=== PATIENT | male | born 1970 | race Caucasian/White ===

== ENCOUNTER 2022-07-31 22:24 | Inpatient (IN) | payer OTHER ==
[~2022-07-31] VITALS: Ht 157.5 cm; Wt 45.0 kg
[2022-07-31] MEDS: BLOOD GLUCOSE MONITORING 1 DEV DEV FS SCH (05:45)
[2022-07-31 22:24] VITALS: BP 139/88
--- NOTE | 2022-07-31 22:25 | NUR ---
PT [facility] ER BED 11
[2022-07-31] MEDS ORDERED: NACL 0.9% 2,000 ML IV ONE (22:30)
--- NOTE | 2022-07-31 22:30 | NUR ---
Patient lying in bed, A/Ox2, chest rise and fall symmetrical, no c/o pain or s/s of discomfort, on monitor, seizure/pads precautions in place.
--- NOTE | 2022-07-31 22:39 | NUR ---
LAB AT BEDSIDE.
[2022-07-31 22:51] LABS: HEMOGLOBIN 15.7 g/dL (12.0-18.0); LYMPHOCYTES # (AUTO) 1.6 K/uL (2.0-11.5); LYMPHOCYTES % (AUTO) 8.9 % (20.5-51.1); MEAN CORPUSCULAR HEMOGLOBIN 30 pg (27-31); MEAN CORPUSCULAR HGB CONC 33 g/dL (33-37); MEAN CORPUSCULAR VOLUME 92.5 fL (80-94); MONOCYTES # (AUTO) 1.4 K/uL (0.8-1.0); MONOCYTES % (AUTO) 7.8 % (1.7-9.3); NEUTROPHILS # (AUTO) 14.6 K/uL (1.8-7.7); NEUTROPHILS % (AUTO) 83.3 % (42.2-75.2); PLATELET COUNT (AUTO) 315 K/uL (140-450); RED BLOOD CELL COUNT(AUTO) 5.18 MIL/uL (4.20-6.10); RED CELL DISTRIBUTION WIDTH 12.7 % (11.6-13.7); WHITE BLOOD COUNT (AUTO) 17.5 K/uL (4.8-10.8)
[2022-07-31 23:20] LABS: ALBUMIN 3.7 g/dL (3.4-5.0); ANION GAP 37.4 (8-16); CARBON DIOXIDE 14.2 mmol/L (21-32); CREATININE 2.5 mg/dL (0.6-1.3); POTASSIUM 4.6 mmol/L (3.5-5.1); TOTAL BILIRUBIN 0.7 mg/dL (0.0-1.0)
[2022-08-01] VITALS (18 sets, daily range): BP systolic 109–148; BP diastolic 73–92
[2022-08-01] MEDS ORDERED: DEXTROSE 50% 50 ML SYR IVP PRN ×2 (00:15→02:45)
[2022-08-01] MEDS ORDERED: INSULIN REGULAR, HUMAN 100 UNIT in NACL 0.9% 100 ML IV SCH ×6 (00:15→04:15)
--- NOTE | 2022-08-01 00:15 | NUR ---
Pt complained of generalized pain classified as little pain Leland 1 TAB given effective fell asleep denies pain no sign of distress noted vitals signs stable
--- NOTE | 2022-08-01 00:28 | NUR ---
CHRISTI MORENO CALLED FOR UPDATES. WOULD LIKE A CALL BACK AT [phone]
--- NOTE | 2022-08-01 00:51 | NUR ---
Patient lying in bed, A/Ox3, chest rise and fall symmetrical, no c/o pain or s/s of discomfort, on monitor, seizure/pads precautions in place.
--- NOTE | 2022-08-01 00:51 | NUR ---
Patient lying in bed, A/Ox3, chest rise and fall symmetrical, no c/o pain or s/s of discomfort, on monitor, seizure/pads precautions in place.
[2022-08-01] MEDS: BLOOD GLUCOSE MONITORING 1 DEV DEV FS SCH ×22 (00:54→23:15)
--- NOTE | 2022-08-01 01:36 | NUR ---
Patient lying in bed, A/Ox3, chest rise and fall symmetrical, no c/o pain or s/s of discomfort, on monitor, seizure/pads precautions in place.
--- NOTE | 2022-08-01 02:15 | NUR ---
Patient lying in bed, A/Ox3, chest rise and fall symmetrical, no c/o pain or s/s of discomfort, on monitor, seizure/pads precautions in place.
--- NOTE | 2022-08-01 02:30 | NUR ---
Patient uriniated in urinal, yellow clear, 300 mL.
[2022-08-01] MEDS ORDERED: ZOLPIDEM 5 MG TAB PO PRN (02:45)
[2022-08-01] MEDS ORDERED: LORazepam 1 MG TAB PO PRN (02:45)
[2022-08-01] MEDS ORDERED: NACL 0.9% 1,000 ML IV SCH ×2 (02:45→04:15)
[2022-08-01] MEDS ORDERED: HYDROcodone/APAP 5/325 MG 1 TAB TAB PO PRN (02:45)
[2022-08-01] MEDS ORDERED: HYDROmorphone 1 MG/ML AMP IVP PRN (02:45)
[2022-08-01] MEDS ORDERED: ACETAMINOPHEN 325 MG TAB PO PRN (02:45)
[2022-08-01] MEDS ORDERED: BLOOD GLUCOSE MONITORING 1 DEV DEV FS SCH (02:45)
[2022-08-01] MEDS ORDERED: ONDANSETRON 4 MG/2 ML VIAL IVP PRN (02:45)
--- NOTE | 2022-08-01 03:00 | NUR ---
Patient will be admitted to care of Franchesca RN. Admited to ICU. Will go to room 3. Belongings list completed. Report to Franchesca RN. Franchesca RN verbalized understanding of report, no further questions.
--- NOTE | 2022-08-01 03:32 | NUR ---
ADMITTED THIS 52 YEAR OLD MALE PATIENT FROM ER PER [facility] DUE TO HIGH BLOOD SUGAR LEVEL. ASSISTED PATIENT IN ICU BED NO.3; HOOKED TO SMART GRID ENGINEER, SCOPE SHOWS ON SINUS TACHY HR 121/MIN NO ARRHYTHMIAS SEEN. PATIENT IS AWAKE AND ALERT BUT WITH BOUTS OF CONFUSION. BREATHING IS EVEN AND UNLABORED ON ROOM AIR SO2 98 TO 100%. REGULAR INSULIN DRIP IN PROGRESS VIA G 20 IV CANNULA TO RIGHT AC AND WITH ANOTHER IV CANNULA G20 ON LEFT AC.
--- NOTE | 2022-08-01 03:45 | NUR ---
BLOOD SUGAR CHECK DONE; INSULIN DRIP CONTINUED AT 0.1 UNIT/KG/HR AND STARTED ON NORMAL SALINE DRIP AT 200 ML/HR VIA LEFT AC IV CANNULA. BLOOD SUGAR CHECK EVERY HOUR PER PROTOCOL.
[2022-08-01] MEDS: DEXT 5% / NACL 0.45% 1,000 ML IV SCH ×4 (04:00→22:14)
--- NOTE | 2022-08-01 04:00 | NUR ---
[facility] SCREEN SWAB SENT TO LAB.
[2022-08-01 04:43] LABS: CARBON DIOXIDE 15.9 mmol/L (21-32)
[2022-08-01 04:46] LABS: CREATININE 2.1 mg/dL (0.6-1.3)
[2022-08-01 04:53] LABS: MAGNESIUM 2.7 mg/dL (1.8-2.4)
[2022-08-01 04:57] LABS: ANION GAP 29.1 (8-16)
--- NOTE | 2022-08-01 05:30 | NUR ---
VISITED BY TIFFANIE, PATIENT'S SON; FOUND OUT SOME DISCREPANCIES IN WHAT PATIENT IS TELLING.
--- NOTE | 2022-08-01 07:30 | NUR ---
Received report on pt. Pt drowsy, arousable, oriented x3. Pt with insulin drip 0.1 unit/kg/hr and NS 200 ml/hr. Pt states no pain, no distress noted on room air. Skin cool to touch. Pt able to void.
--- NOTE | 2022-08-01 07:30 | NUR ---
ENDORSED TO AM SHIFT NATASHA FLORES FOR CONTINUITY OF CARE.
[2022-08-01] MEDS: DOCUSATE SODIUM 100 MG GELCAP PO SCH (08:27)
[2022-08-01 08:41] LABS: ANION GAP 17.9 (8-16); CARBON DIOXIDE 23.6 mmol/L (21-32); CREATININE 1.9 mg/dL (0.6-1.3); POTASSIUM 3.5 mmol/L (3.5-5.1)
[2022-08-01 08:44] LABS: MAGNESIUM 2.6 mg/dL (1.8-2.4); PHOSPHORUS 2.1 mg/dL (2.5-4.9)
--- NOTE | 2022-08-01 09:01 | NUR ---
PATIENT HAS BEEN SCREENED AND CATEGORIZED HIGH NUTRITION RISK. PATIENT WILL BE SEEN WITHIN 1-[address] RECEIVED REFERRAL REQUEST FOR UNINTENTIONAL WEIGHT LOSS ON 08/01/22 RE[address] BY LILLIE GONZALEZ RD
--- NOTE | 2022-08-01 09:23 | NUR ---
Dr. Reyes made aware of pt's sodium level 171, states to continue pt on NS for dehydration.
[2022-08-01] MEDS ORDERED: FAMOTIDINE 20 MG/2 ML VIAL IV SCH (10:50)
--- NOTE | 2022-08-01 11:00 | NUR ---
Dr. Gaytan rounding on pt, pt's daughter at bedside and updated regarding plan of care.
[2022-08-01 12:43] LABS: ANION GAP 11.9 (8-16); CARBON DIOXIDE 22.7 mmol/L (21-32); CREATININE 1.4 mg/dL (0.6-1.3)
[2022-08-01 12:45] LABS: POTASSIUM 2.6 mmol/L (3.5-5.1)
[2022-08-01 12:46] LABS: MAGNESIUM 1.6 mg/dL (1.8-2.4)
--- NOTE | 2022-08-01 12:50 | NUR ---
Dr. Walker rounding on pt. New orders made. MD also aware of sodium levels and states to have main fluid switched to 1/2 NS.
[2022-08-01] MEDS ORDERED: KCL 20 MEQ/WATER INJ PREMIX 200 ML IV SCH (13:15)
[2022-08-01] MEDS: NACL 0.45% 1,000 ML IV SCH ×2 (13:37→19:40)
[2022-08-01] MEDS: FAMOTIDINE 20 MG/2 ML VIAL IV SCH (13:42)
[2022-08-01] MEDS ORDERED: SODIUM PHOSPHATE 30 MMOLE in NACL 0.9% 250 ML IV SCH (14:00)
--- NOTE | 2022-08-01 14:49 | NUR ---
IV left AC noted with catheter almost out, unable to fix IV and removed. Catheter tip intact, bleeding controlled. New IV site placement 20G on left FA, patent, no infiltration noted. Pt tolerated well.
[2022-08-01 15:48] LABS: ANION GAP 13.6 (8-16); CARBON DIOXIDE 26.1 mmol/L (21-32); CREATININE 1.7 mg/dL (0.6-1.3); POTASSIUM 3.7 mmol/L (3.5-5.1)
[2022-08-01 15:52] LABS: MAGNESIUM 2.3 mg/dL (1.8-2.4); PHOSPHORUS 1.4 mg/dL (2.5-4.9)
--- NOTE | 2022-08-01 16:47 | NUR ---
Attempted to update pt's son Fernando regarding pt's current status, no answer, left voicemail.
[2022-08-01] MEDS ORDERED: POTASSIUM PHOSPHATE 30 MM in NACL 0.9% 250 ML IV SCH (17:00)
--- NOTE | 2022-08-01 17:28 | NUR ---
DC PLANNING ASSESSMENT COMPLETE PLEASE REFER TO ASSESSMENT FOR DETAILS PER TIFFANIE, DC PLAN IS FOR PT TO RETURN HOME W/ SON PROVIDING TRANSPORTATION, WHEN MEDICALLY STABLE. Addendum: 08/01/22 at 1728 by Marissa GARCIA Amended: Links added.
--- NOTE | 2022-08-01 19:20 | NUR ---
Assumed pt care report received from Cristin KAUR met pt awake alert, coherent with verbal response generalized weakness ST/SR on the monitor blood pressure/ vitals signs stable denies pain no sign of distress noted. Ongoing Insulin drip on DKA protocol. Education on care plan verbalized understanding but reinforcement needed will continue to monitor and treat as per care plan.
--- NOTE | 2022-08-01 19:35 | NUR ---
Endorsed plan of care to RN.
[2022-08-01 20:26] LABS: ANION GAP 11.6 (8-16); CREATININE 1.5 mg/dL (0.6-1.3); POTASSIUM 3.6 mmol/L (3.5-5.1)
--- NOTE | 2022-08-01 20:50 | NUR ---
Pt's family visit at the bedside updates on pt's condition, education on care plan, ongoing treatments latest blood sugar vitals signs and encouraged them to verbalized their concerns. They were grateful for all care pt receiving as at this time.
[2022-08-01 21:39] LABS: ANION GAP 11.1 (8-16); CARBON DIOXIDE 26.8 mmol/L (21-32); CREATININE 1.5 mg/dL (0.6-1.3); POTASSIUM 3.9 mmol/L (3.5-5.1)
--- NOTE | 2022-08-01 22:02 | NUR ---
Notified Dr ASCENCIO latest BMP results with critical Sodium 172, CO2 26.8, BUN 38 Creatnine 1.5 latest blood sugar 183 Anion gap 11.1 ongoing Insulin drip @0.05 units/kg/hr and main IV D5 .45NS @200ML/HR. No new order received from as at this time said to continue with same tx.
[2022-08-02] VITALS (14 sets, daily range): BP systolic 106–159; BP diastolic 68–90
[2022-08-02] MEDS: BLOOD GLUCOSE MONITORING 1 DEV DEV FS SCH ×17 (00:47→21:00)
[2022-08-02 00:53] LABS: ANION GAP 12.1 (8-16); CARBON DIOXIDE 25.5 mmol/L (21-32); CREATININE 1.5 mg/dL (0.6-1.3); POTASSIUM 3.6 mmol/L (3.5-5.1)
[2022-08-02] MEDS: DEXT 5% / NACL 0.45% 1,000 ML IV SCH ×6 (00:53→23:15)
[2022-08-02 00:58] LABS: MAGNESIUM 1.9 mg/dL (1.8-2.4); PHOSPHORUS 3.1 mg/dL (2.5-4.9)
[2022-08-02] MEDS: NACL 0.45% 1,000 ML IV SCH ×4 (02:20→22:20)
[2022-08-02 06:26] LABS: CARBON DIOXIDE 23.6 mmol/L (21-32); CREATININE 1.5 mg/dL (0.6-1.3); POTASSIUM 3.6 mmol/L (3.5-5.1)
[2022-08-02 06:33] LABS: MAGNESIUM 1.9 mg/dL (1.8-2.4); PHOSPHORUS 2.3 mg/dL (2.5-4.9)
[2022-08-02 06:57] LABS: BASOPHILS # (AUTO) 0.1 K/uL (0.00-0.22); BASOPHILS % (AUTO) 0.4 % (0.0-2.0); HEMATOCRIT 37.3 % (36-52); HEMOGLOBIN 12.3 g/dL (12.0-18.0); LYMPHOCYTES # (AUTO) 1.8 K/uL (2.0-11.5); LYMPHOCYTES % (AUTO) 11.9 % (20.5-51.1); MEAN CORPUSCULAR HEMOGLOBIN 31 pg (27-31); MEAN CORPUSCULAR HGB CONC 33 g/dL (33-37); MEAN CORPUSCULAR VOLUME 93.7 fL (80-94); MONOCYTES % (AUTO) 6.3 % (1.7-9.3); NEUTROPHILS # (AUTO) 12.5 K/uL (1.8-7.7); NEUTROPHILS % (AUTO) 81.4 % (42.2-75.2); PLATELET COUNT (AUTO) 188 K/uL (140-450); RED BLOOD CELL COUNT(AUTO) 3.99 MIL/uL (4.20-6.10); WHITE BLOOD COUNT (AUTO) 15.4 K/uL (4.8-10.8)
[2022-08-02] MEDS ORDERED: DEXTROSE 5% 1,000 ML IV SCH (07:00)
--- NOTE | 2022-08-02 07:03 | NUR ---
Critical lab SODIUM 191 Dr Alarcon notified and order received to insert NGT, free water 200 q4hrs and change main IV fluids to D5W 200ml/hr.
--- NOTE | 2022-08-02 07:15 | NUR ---
RECEIVED REPORT FROM PHARMACISTS ROCHELLE KAUR. PT IS SLEEPING. SR ON MONITOR. IV TO RT AC, 20G, RUNNING D5W @ 200MLS/HR. IV TO RT WRIST 20G, RUNNING INSULIN DRIP @ 0.05 UNIT/KG/H[facility]. URINAL IN USE. SKIN INTACT. BED TO LOWEST POSITION, CALL LIGHT WITHIN REACH, WILL CONTINUE TO MONITOR.
--- NOTE | 2022-08-02 07:32 | NUR ---
Change of shift report given to Molly KAUR at the bedside also the latest orders received from Dr ASCENCIO due to elevated Sodium 191 order received to insert NGT free water 200 q4hrs and change main IV fluids to D5W 200ml/hr and she verbalized understanding as at this time pt in no distress vitals signs stable and no change in care plan.
[2022-08-02] MEDS: FAMOTIDINE 20 MG/2 ML VIAL IV SCH (08:32)
[2022-08-02] MEDS: DOCUSATE SODIUM 100 MG GELCAP PO SCH (08:33)
[2022-08-02 08:45] LABS: CARBON DIOXIDE 26.2 mmol/L (21-32); CREATININE 1.4 mg/dL (0.6-1.3); POTASSIUM 3.2 mmol/L (3.5-5.1)
[2022-08-02 08:52] LABS: MAGNESIUM 1.8 mg/dL (1.8-2.4); PHOSPHORUS 2.3 mg/dL (2.5-4.9)
--- NOTE | 2022-08-02 09:45 | NUR ---
UPDATED PT BMP, NA [address] ASCENCIO. ORDERED SWITCH BACK TO D5W 1/2 NS @200MLS/HR AFTER CURRENT BAG OF D5W DONE.
--- NOTE | 2022-08-02 10:21 | NUR ---
PT IS RECEIVING D5W AT 200MLS/H PER DR ASCENCIO.
[2022-08-02] MEDS ORDERED: KCL 20 MEQ/WATER INJ PREMIX 200 ML IV SCH (11:00)
--- NOTE | 2022-08-02 11:56 | NUR ---
FAMILY/DAUGHTER AT BEDSIDE. UPDATED PT INFORMATION.
--- NOTE | 2022-08-02 12:50 | NUR ---
DR MACHADO ROUNDING AT BEDSIDE. UPDATED PT INFORMATION.
[2022-08-02 12:56] LABS: ANION GAP 12.6 (8-16); CARBON DIOXIDE 25.5 mmol/L (21-32); CREATININE 1.3 mg/dL (0.6-1.3); POTASSIUM 3.1 mmol/L (3.5-5.1)
[2022-08-02 13:00] LABS: MAGNESIUM 1.7 mg/dL (1.8-2.4); PHOSPHORUS 1.7 mg/dL (2.5-4.9)
[2022-08-02] MEDS ORDERED: SODIUM PHOSPHATE 15 MMOLE in NACL 0.9% 250 ML IV ONE (13:40)
[2022-08-02] MEDS ORDERED: MAG SULF 2000 MG/WATER PREMIX 50 ML IV ONE (13:40)
[2022-08-02] MEDS: INSULIN LANTUS 100 UNITS/ML 10 ML VIAL SUBQ SCH (15:04)
--- NOTE | 2022-08-02 16:26 | NUR ---
FAMILY/SON AT BEDSIDE. UPDATED PT INFORMATION.
--- NOTE | 2022-08-02 16:35 | NUR ---
DR SILVA HELM AT BEDSIDE. UPDATED PT INFORMATION. ORDER BMP STAT AND RECHECK AT 2200. D5 /2 NS @ 150MLS/HR.
[2022-08-02 17:22] LABS: ANION GAP 12.9 (8-16); CARBON DIOXIDE 24.4 mmol/L (21-32); CREATININE 1.1 mg/dL (0.6-1.3); POTASSIUM 3.3 mmol/L (3.5-5.1)
[2022-08-02] MEDS ORDERED: FLUCONAZOLE 100 MG/NS PREMIX 50 ML IV SCH (17:40)
[2022-08-02] MEDS ORDERED: POTASSIUM CHLORIDE 20% 40 MEQ/15 ML UDC GT PRN (17:40)
--- NOTE | 2022-08-02 17:46 | NUR ---
DR WILKINS ROUNDJOHNNIE AT BEDSIDE. UPDATED PT INFORMATION.
--- NOTE | 2022-08-02 17:49 | NUR ---
UPDATED CURRENT BMP TO DR ASCENCIO. REGARDING K LEVEL, DR WILKINS ORDERED POTASSIUM CHLORIDE 40 DEREK G. RECEIVED PHONE CALL FROM DR ASCENCIO. ORDERED K RIDER 80 DEREK IV. OK TO GIVE PT TOTAL K 120 DEREK.
[2022-08-02] MEDS ORDERED: KCL 20 MEQ/WATER INJ PREMIX 200 ML IV ONE ×2 (17:50)
--- NOTE | 2022-08-02 19:18 | NUR ---
CALL OUTSIDE PHARMACY REGARDING MEDICATION DIFLUCAN 100MG IV. GOT RESPONSE FROM OUTSIDE PHARMACY, OK TO GET A BAG OF DIFLUCAN 200MG IV FROM [facility], AND GIVE PT HALF BAG. PASS ON TO DIGITAL HARDWARE DESIGN ENGINEER ROCHELLE KAUR.
--- NOTE | 2022-08-02 19:21 | NUR ---
ENDORSED TO FOUNDATION DRILL OPERATOR HELPER ROCHELLE KAUR FOR CONTINUITY OF CARE. ALL QUESTIONS ANSWERED.
--- NOTE | 2022-08-02 20:30 | NUR ---
Pt transfer to MED SURG awake alert oriented [id number] signs stable no complain and no sign of distress report given at the bedside to Matthew KAUR
[2022-08-02] MEDS: INSULIN LISPRO SLIDING SCALE 100 UNITS/ML VIAL SUBQ PRN (22:21)
[2022-08-02] MEDS: NS IV SCH (22:29)
[2022-08-02] MEDS: FLUCONAZOLE IV SCH (22:29)
[2022-08-02 22:33] LABS: ANION GAP 10.1 (8-16); CARBON DIOXIDE 25.7 mmol/L (21-32); CREATININE 1.2 mg/dL (0.6-1.3); POTASSIUM 3.8 mmol/L (3.5-5.1)
[2022-08-03] MEDS: NACL 0.45% 1,000 ML IV SCH ×3 (05:00→21:05)
[2022-08-03] MEDS: DEXT 5% / NACL 0.45% 1,000 ML IV SCH ×3 (05:55→19:15)
[2022-08-03] MEDS: BLOOD GLUCOSE MONITORING 1 DEV DEV FS SCH ×4 (07:00→21:09)
[2022-08-03] MEDS: INSULIN LISPRO SLIDING SCALE 100 UNITS/ML VIAL SUBQ PRN ×4 (07:00→21:09)
--- NOTE | 2022-08-03 07:28 | NUR ---
PT IS STABLE. NO ACUTE EVENTS THROUGHOUT THE NIGHT.ALL NEEDS ATTENDED. NO S/SX OF DISTRESS AT THIS MOMENT. ALL PRECAUTIONS IN PLACE. CALL LIGHT WITHIN REACH. WILL ENDORSE TO DAY SHIFT NURSE.
[2022-08-03 08:00] VITALS: BP 189/93
[2022-08-03] MEDS ORDERED: INSULIN LANTUS 100 UNITS/ML 10 ML VIAL SUBQ SCH (09:00)
[2022-08-03] MEDS: DOCUSATE SODIUM 100 MG GELCAP PO SCH (09:26)
[2022-08-03] MEDS: FAMOTIDINE 20 MG/2 ML VIAL IV SCH (09:26)
[2022-08-03 09:47] LABS: BASOPHILS % (AUTO) 0.2 % (0.0-2.0); EOSINOPHILS % (AUTO) 0.2 % (0.0-4.0); HEMATOCRIT 40.8 % (36-52); HEMOGLOBIN 13.5 g/dL (12.0-18.0); LYMPHOCYTES # (AUTO) 1.5 K/uL (2.0-11.5); LYMPHOCYTES % (AUTO) 12.9 % (20.5-51.1); MEAN CORPUSCULAR HEMOGLOBIN 31 pg (27-31); MEAN CORPUSCULAR HGB CONC 33 g/dL (33-37); MEAN CORPUSCULAR VOLUME 92.6 fL (80-94); MONOCYTES # (AUTO) 0.5 K/uL (0.8-1.0); MONOCYTES % (AUTO) 4.7 % (1.7-9.3); NEUTROPHILS # (AUTO) 9.4 K/uL (1.8-7.7); PLATELET COUNT (AUTO) 152 K/uL (140-450); RED CELL DISTRIBUTION WIDTH 12.9 % (11.6-13.7); WHITE BLOOD COUNT (AUTO) 11.5 K/uL (4.8-10.8)
[2022-08-03 10:02] LABS: ALBUMIN 2.6 g/dL (3.4-5.0); ANION GAP 10.8 (8-16); CARBON DIOXIDE 27.8 mmol/L (21-32); CREATININE 1.3 mg/dL (0.6-1.3); MAGNESIUM 2.5 mg/dL (1.8-2.4); POTASSIUM 3.6 mmol/L (3.5-5.1); TOTAL BILIRUBIN 0.6 mg/dL (0.0-1.0)
--- NOTE | 2022-08-03 13:40 | NUR ---
FAMILY MEMBER BROUGHT SHOES (BROWN SANDALS), SMARTPHONE (BLACK Gen[employer]SUNG), MANUFACTURED BUILDINGS SUPERVISOR (BLACK WITH WIRE THAT IS ALSO BLACK).
[2022-08-03 16:00] VITALS: BP 172/96
[2022-08-03] MEDS: FLUCONAZOLE IV SCH (19:20)
[2022-08-03] MEDS: NS IV SCH (19:20)
--- NOTE | 2022-08-03 19:30 | NUR ---
RECEIVED PT FROM DAY RN FOR CONTINUITY OF CARE. PT AWAKE, ALERT AND ORIENTED X 4.PT ON ROOM AIR, NO SIGNS OF RESPIRATORY DISTRESS NOTED.FAMILY AT BEDSIDE. ALL PRECAUTIONS IN PLACE. CALL LIGHT WITHIN REACH. WILL CONTINUE TO MONITOR.
[2022-08-03 20:00] VITALS: BP 149/88
--- NOTE | 2022-08-03 20:11 | NUR ---
08/03/22 RD INITIAL ASSESSMENT COMPLETED. PLEASE REFER TO NUTRITION ASSESSMENT UNDER CARE ACTIVITY FOR ESTIMATED NUTRITIONAL NEEDS. 1. CONTINUE CCHO DIET TOLERATED 2. RECOMMEND GLUCERNA BID TO OPTIMIZE NUTRITIONAL NEEDS 3. MONITOR PO INTAKE 4. RD TO FOLLOW-UP 2-3 DAYS, HIGH RISK EM GARSIA RD
--- NOTE | 2022-08-03 21:30 | NUR ---
SCHEDULED MEDICATION GIVEN. PT TOLERATED WELL. WILL CONTINUE TO MONITOR.BLOOD SUGAR 276. 6 UNITS INSULIN COVERAGE GIVEN.
--- NOTE | 2022-08-04 00:46 | NUR ---
PT ASLEEP. NO S/SX OF DISTRESS NOTED. ALL PRECAUTIONS IN PLACE. CALL LIGHT WITHIN REACH. WILL CONTINUE TO MONITOR.
[2022-08-04] MEDS: DEXT 5% / NACL 0.45% 1,000 ML IV SCH (01:55)
[2022-08-04] MEDS: NACL 0.45% 1,000 ML IV SCH (04:23)
[2022-08-04] MEDS: BLOOD GLUCOSE MONITORING 1 DEV DEV FS SCH ×4 (06:47→20:50)
[2022-08-04] MEDS: INSULIN LISPRO SLIDING SCALE 100 UNITS/ML VIAL SUBQ PRN ×4 (06:47→21:01)
[2022-08-04 08:00] VITALS: BP 179/94
[2022-08-04] MEDS: FAMOTIDINE 20 MG/2 ML VIAL IV SCH (09:06)
[2022-08-04] MEDS: DOCUSATE SODIUM 100 MG GELCAP PO SCH (09:06)
[2022-08-04] MEDS: INSULIN LANTUS 100 UNITS/ML 10 ML VIAL SUBQ SCH (09:09)
[2022-08-04] MEDS: DEXTROSE 5% 1,000 ML IV SCH ×2 (10:26→20:15)
[2022-08-04 10:56] LABS: ANION GAP 8.9 (8-16); CARBON DIOXIDE 32.5 mmol/L (21-32); CREATININE 1.1 mg/dL (0.6-1.3); POTASSIUM 3.4 mmol/L (3.5-5.1)
[2022-08-04 16:00] VITALS: BP 128/82
[2022-08-04] MEDS: FLUCONAZOLE IV SCH (19:13)
[2022-08-04] MEDS: NS IV SCH (19:13)
--- NOTE | 2022-08-04 19:30 | NUR ---
RECEIVED PATIENT SITTING UP ON BED, PATIENT IS AWAKE, ALERT AND ORIENTED, DENIES PAIN/DISCOMFORT UPON ASSESSMENT, NO SIGNS OF DISTRESS NOTED. FAMILY AT BEDSIDE. ALL SAFETY MEASURES IN PLACE.
[2022-08-04 19:51] LABS: BASOPHILS % (AUTO) 0.2 % (0.0-2.0); EOSINOPHILS # (AUTO) 0.1 K/uL (0-0.4); EOSINOPHILS % (AUTO) 1.3 % (0.0-4.0); HEMOGLOBIN 12.7 g/dL (12.0-18.0); LYMPHOCYTES # (AUTO) 2.2 K/uL (2.0-11.5); LYMPHOCYTES % (AUTO) 23.5 % (20.5-51.1); MEAN CORPUSCULAR HEMOGLOBIN 31 pg (27-31); MEAN CORPUSCULAR HGB CONC 34 g/dL (33-37); MEAN CORPUSCULAR VOLUME 91.3 fL (80-94); MONOCYTES # (AUTO) 0.6 K/uL (0.8-1.0); MONOCYTES % (AUTO) 6.8 % (1.7-9.3); NEUTROPHILS # (AUTO) 6.3 K/uL (1.8-7.7); NEUTROPHILS % (AUTO) 68.2 % (42.2-75.2); PLATELET COUNT (AUTO) 115 K/uL (140-450); RED BLOOD CELL COUNT(AUTO) 4.16 MIL/uL (4.20-6.10); RED CELL DISTRIBUTION WIDTH 12.5 % (11.6-13.7); WHITE BLOOD COUNT (AUTO) 9.2 K/uL (4.8-10.8)
[2022-08-04 20:00] VITALS: BP 121/78
[2022-08-04 20:02] LABS: ANION GAP 7.7 (8-16); CARBON DIOXIDE 31.3 mmol/L (21-32); CREATININE 1.1 mg/dL (0.6-1.3)
--- NOTE | 2022-08-04 20:53 | NUR ---
SCHEDULED MEDICATIONS GIVEN ORDERED.
--- NOTE | 2022-08-05 00:03 | NUR ---
PATIENT IS ASLEEP, NO SIGNS OF PAIN, NO SIGNS OF DISTRESS NOTED. CALL LIGHT WITHIN REACH.
[2022-08-05] MEDS: DEXTROSE 5% 1,000 ML IV SCH (00:59)
--- NOTE | 2022-08-05 01:08 | NUR ---
PATIENT GIVEN POTASSIUM CHLORIDE 40MEQ/15ML ORDERED, POTASSIUM LEVEL IS 3.0.
[2022-08-05 05:36] LABS: BASOPHILS % (AUTO) 0.1 % (0.0-2.0); EOSINOPHILS # (AUTO) 0.2 K/uL (0-0.4); EOSINOPHILS % (AUTO) 2.1 % (0.0-4.0); HEMATOCRIT 33.6 % (36-52); HEMOGLOBIN 11.6 g/dL (12.0-18.0); LYMPHOCYTES # (AUTO) 2.1 K/uL (2.0-11.5); LYMPHOCYTES % (AUTO) 23.1 % (20.5-51.1); MEAN CORPUSCULAR HEMOGLOBIN 31 pg (27-31); MEAN CORPUSCULAR HGB CONC 35 g/dL (33-37); MEAN CORPUSCULAR VOLUME 90.8 fL (80-94); MONOCYTES # (AUTO) 0.6 K/uL (0.8-1.0); MONOCYTES % (AUTO) 6.1 % (1.7-9.3); NEUTROPHILS # (AUTO) 6.3 K/uL (1.8-7.7); NEUTROPHILS % (AUTO) 68.6 % (42.2-75.2); PLATELET COUNT (AUTO) 109 K/uL (140-450); RED CELL DISTRIBUTION WIDTH 12.3 % (11.6-13.7); WHITE BLOOD COUNT (AUTO) 9.2 K/uL (4.8-10.8)
[2022-08-05 06:23] LABS: ANION GAP 8.5 (8-16); CARBON DIOXIDE 29.6 mmol/L (21-32); POTASSIUM 4.1 mmol/L (3.5-5.1)
[2022-08-05] MEDS: BLOOD GLUCOSE MONITORING 1 DEV DEV FS SCH ×2 (06:36→11:26)
[2022-08-05] MEDS: INSULIN LISPRO SLIDING SCALE 100 UNITS/ML VIAL SUBQ PRN ×2 (06:37→11:36)
--- NOTE | 2022-08-05 07:20 | NUR ---
ENDORSED PATIENT TO DAY NURSE FOR CONTINUITY OF CARE. NEEDS MET THROUGHOUT THE SHIFT. PATIENT IS IN STABLE CONDITION.
[2022-08-05 08:00] VITALS: BP 121/78
[2022-08-05] MEDS: FAMOTIDINE 20 MG/2 ML VIAL IV SCH (09:15)
[2022-08-05] MEDS: DOCUSATE SODIUM 100 MG GELCAP PO SCH (09:15)
[2022-08-05] MEDS: INSULIN LANTUS 100 UNITS/ML 10 ML VIAL SUBQ SCH (09:27)
[2022-08-05] MEDS ORDERED: HUM SUBQ (13:59)
[2022-08-05] MEDS ORDERED: GLUC-805 FS (13:59)
[2022-08-05] MEDS ORDERED: LANTUS SUBQ (13:59)
--- NOTE | 2022-08-05 16:27 | NUR ---
PATIENT DISCHARGE TO HOME WITH ALL BELONGINGS AND A COPY OF DISCHARGE INSTRUCTIONS. INTACT 20 GAUGE INTRAVENOUS CATHETERS LEFT FOREARM AND RIGHT ANTECUBITAL SPACE. IDENTIFICATION BRACELET ON WRIST REMOVAL. SON OF PATIENT PRESENT FOR TRANSPORT TO HOME.
== END 2022-08-05 18:49 | disposition home or self-care (01) | DRG 420 ==
LOC: MED 22:24 → MIC 08-01 02:47 → MTU 08-02 20:45
PROVIDERS: ADMIT Hospitalist; ATTEND Hospitalist
DX: E11.10 Type 2 diabetes mellitus with ketoacidosis without coma (principal); N17.0 Acute kidney failure with tubular necrosis; G93.41 Metabolic encephalopathy; E87.0 Hyperosmolality and hypernatremia; E86.0 Dehydration; Z20.822 Contact with and (suspected) exposure to COVID-19; E87.6 Hypokalemia; E83.39 Other disorders of phosphorus metabolism; Z91.14 Patient's other noncompliance with medication regimen; Z79.4 Long term (current) use of insulin; E87.1 Hypo-osmolality and hyponatremia; E87.20 Acidosis, unspecified
CPT/HCPCS: 36415; 36600; 71045; 80048; 80053; 82009; 82803; 82948; 83605; 83735; 83880; 84100; 84484; 85025; 87040; 87081; 96361; 96374; 97116; 97163-GP; 99291; J0696; J1450; J1644; J1815; J2405; J3475; J3480; J3490; J7030; J7060; Q0092